=== PATIENT | female | born 1940 | race Caucasian/White ===

== ENCOUNTER 2023-12-20 11:38 | Emergency (ER) | payer OTHER ==
[~2023-12-20] VITALS: Ht 162.6 cm; Wt 54.4 kg
[2023-12-20] MEDS: HYDROcodone/acetaminophen 5mg/325mg tablet PO ONE (12:24)
[2023-12-20 12:26] VITALS: BP 161/82; PULSE 90; RESP 20; TEMP 97.8; O2SAT 98
[2023-12-20] MEDS ORDERED: HYDR-3965 PO (13:23)
== END 2023-12-20 14:18 | disposition home or self-care (01) ==
LOC: ER 11:39
DX: S52.502A Unspecified fracture of the lower end of left radius, initial encounter for closed fracture (principal); S52.612A Displaced fracture of left ulna styloid process, initial encounter for closed fracture; W19.XXXA Unspecified fall, initial encounter; Y93.89 Activity, other specified; Y92.89 Other specified places as the place of occurrence of the external cause; Y99.9 Unspecified external cause status
CPT/HCPCS: 29125; 73110; 99283; A4565; A6446; A6449

== ENCOUNTER 2024-05-08 11:52 | Emergency (ER) | payer SELFPAY ==
[~2024-05-08] VITALS: Ht 157.5 cm; Wt 53.9 kg
[~2024-05-08 11:52] MED LIST: HYDR-3965 PO
[2024-05-08 12:24] VITALS: BP 165/93; PULSE 99; TEMP 97.8; O2SAT 99
[2024-05-08 13:07] VITALS: RESP 20
== END 2024-05-08 13:08 | disposition home or self-care (01) ==
LOC: ER 11:52
DX: S52.612D Displaced fracture of left ulna styloid process, subsequent encounter for closed fracture with routine healing (principal); X58.XXXD Exposure to other specified factors, subsequent encounter
CPT/HCPCS: 73110; 99283